=== PATIENT | female | born 1965 | race Caucasian/White ===

== ENCOUNTER 2020-11-02 17:14 | Emergency (ER) | payer BC, SELFPAY ==
--- NOTE | ~2020-11-02 | XR_ITS ---
EXAMINATION: XR ribs LT 2V w CXR 2V EXAM DATE: 11/02/2020 19:04 INDICATION: Initial encounter following injury, with pain of the left ribs. TECHNIQUE: Frontal projection of the upper left ribs, frontal projection of the lower left ribs, obli que projection of the left ribs, frontal and lateral chest x-ray(s) for interpretation. There is no prior study for comparison. FINDINGS: There are no displaced acute left rib fractures identified. There is no soft tissue abnor mality seen. The lungs are hyperinflated which can be seen with chronic obstructive pulmonary disease (a clinical diagnosis of functional impairment), but is not diagnostic of it. No confluent consolida tion, pneumothorax or pleural effusion suspected. Cardiomediastinal silhouette is normal. IMPRESSION: No displaced left rib fractures. Hyperinflation. Reviewed, dictated and finalized at location A.
[2020-11-02 18:23] VITALS: BP 139/72; PULSE 84; RESP 18; TEMP 36.7; O2SAT 98
--- NOTE | 2020-11-02 18:53 | ED.GENADULT ---
HPI - General Adult General Chief complaint: Unspecified Stated complaint: rib pain Time Seen by Provider: 11/02/20 18:53 History of Present Illness HPI narrative: Left chest wall pain for the past couple of hours. Started while pulling up floor boards from her deck. She felt a pop and has had pain ever since. Worse with deep breathing or coughing. no SOB. Related Data Allergies Allergy/AdvReac Type Severity Reaction Status Date / Time No Known Allergies Allergy Verified 11/02/20 19:14 Review of Systems Review of Systems: All systems reviewed & are unremarkable except as noted in HPI and below Constitutional: Constitutional: Denies fever(s) Cardiovascular: Cardiovascular: Denies dyspnea Respiratory: Respiratory: Denies cough Gastrointestinal: Gastrointestinal: Reports no additional gastrointestinal complaints PMFSH Social History Social History Smoking status: Current every day smoker Gender identity (if verbalized by the patient): Female Exam Const: General: cooperative, healthy appearing and uncomfortable Nutritional Appearance: well nourished Orientation/consciousness: patient oriented x3 HENMT: Head: normal to inspection Neck: Neck: normal visual inspection Chest: Chest palpation & inspection: normal inspection of the chest and tenderness rib (left lower, minimal) Resp: Effort & Inspection: normal respiratory effort Auscultation: clear to auscultation bilaterally Cardio: Rate: regular rate Rhythm: regular rhythm GI: Inspection: normal to inspection GI Palp: No Tenderness to palpation present (GI) Neuro: General: patient oriented x3, gait normal and no focal motor deficits Extrem: General: normal to inspection Course Vital Signs Vital signs: Vital Signs Temperature 36.7 C 11/02/20 18:23 Pulse Rate 84 11/02/20 18:23 Respiratory Rate 18 11/02/20 18:23 Blood Pressure 139/72 11/02/20 18:23 Pulse Oximetry 98 11/02/20 18:23 Temperature 36.7 C 11/02/20 18:23 Pulse Rate 87 11/02/20 19:13 Respiratory Rate 18 11/02/20 19:13 Blood Pressure 143/71 H 11/02/20 19:13 Pulse Oximetry 98 11/02/20 19:13 Medical Decision Making MDM Narrative Medical decision making narrative: x-ray negative for acute injury Differential Diagnosis Differential Diagnosis: rib fracture, strain, pneumothorax, other Medical Records Medical records reviewed: Yes I reviewed the external patient's medical records. Vital Signs Vital Signs: Vital Signs Temperature 36.7 C 11/02/20 18:23 Pulse Rate 84 11/02/20 18:23 Respiratory Rate 18 11/02/20 18:23 Blood Pressure 139/72 11/02/20 18:23 Pulse Oximetry 98 11/02/20 18:23 Temperature 36.7 C 11/02/20 18:23 Pulse Rate 87 11/02/20 19:13 Respiratory Rate 18 11/02/20 19:13 Blood Pressure 143/71 H 11/02/20 19:13 Pulse Oximetry 98 11/02/20 19:13 Imaging Data Radiologist's impression: ITS Impressions Ribs w/Chest X-Ray 11/02/20 19:06 IMPRESSION: No displaced left rib fractures. Hyperinflation. Discharge Plan Discharge Clinical Impression: Strain of chest wall Patient Disposition: Home, Self-Care Condition: Stable Instructions: Chest Wall Pain (ED) Prescriptions: New cyclobenzaprine 10 mg tablet 10 mg PO TID PRN (Reason: muscle spasm) Qty: 20 RF: 0 Follow-up/Referrals: Aashish Hutton MD [Primary Care Provider] -
[2020-11-02 19:13] VITALS: BP 143/71; PULSE 87; RESP 18; O2SAT 98
== END 2020-11-02 19:33 | disposition home or self-care (01) ==
PROVIDERS: Emergency Provider Emergency Medicine; PCP Family Medicine
DX: S29.011A Strain of muscle and tendon of front wall of thorax, initial encounter (principal); F17.200 Nicotine dependence, unspecified, uncomplicated; X50.9XXA Other and unspecified overexertion or strenuous movements or postures, initial encounter
CPT/HCPCS: 71046; 71100; 99283

== ENCOUNTER → 2021-03-01 16:51 | Outpatient (CLI) | payer BC, SELFPAY ==
--- NOTE | ~2021-03-01 | MM_ITS ---
EXAMINATION: MM screening christopher BI w leah HISTORY: Screening TECHNIQUE: Craniocaudal and mediolateral oblique 3-D tomosynthesis images were obtained and synthetic 2-D images were generated. CAD analysis was submitted and interpreted. COMPARISON: Comparison to multiple prior studies sequentially, with oldest reviewed study dated 04/23. BREAST PARENCHYMAL COMPOSITION: The breasts are extremely dense, which lowers the sensitivity of mamm ography. FINDINGS: There is no evidence of suspicious mass, calcification, or architectural distortion to sugg est malignancy in either breast. There has been no suspicious interval change. IMPRESSION: 1. No mammographic evidence of malignancy. 2. Recommend routine screening mammography in one year. BI-RADS Category 1: Negative Reviewed, dictated and finalized at location A.
== END ==
PROVIDERS: PCP Family Medicine; Visit Provider Physician Assistant
DX: Z12.31 Encounter for screening mammogram for malignant neoplasm of breast (principal)
CPT/HCPCS: 77063; 77067

== ENCOUNTER 2024-07-17 16:40 | Outpatient (CLI) | payer OTHER, SELFPAY ==
--- NOTE | ~2024-07-17 | CT_ITS ---
CT Scan of the Chest without Contrast: Clinical Indication: Lung cancer screening, nicotine dependence Technique: Contiguous sections were acquired throughout the chest without intravenous contrast. Dose reduction technique was used on this scan by utilizing automated exposure control and iterative recon struction technique. The dose-length product (DLP) was 69.96 mGy-cm. Findings: There is no evidence of any significant mediastinal, hilar or axillary lymphadenopathy. The mediastin al soft tissues appear normal. There is no evidence of pleural or pericardial effusion. There is moderate emphysema, mild right apical scarring. No definite pulmonary nodule evident. Images through the upper abdomen reveal no abnormalities. Impression: Lung RADS 1: Negative. 12 month follow-up screening CT advised. Reviewed, dictated and finalized at location . 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 12 month follow-up screening CT advised.
== END 2024-07-17 16:41 | disposition home or self-care (01) ==
LOC: ANHIMG 16:43
PROVIDERS: PCP Family Medicine; Visit Provider Family Medicine
DX: Z12.2 Encounter for screening for malignant neoplasm of respiratory organs (principal); Z87.891 Personal history of nicotine dependence
CPT/HCPCS: 71271

== ENCOUNTER 2025-06-20 17:47 | Emergency (ER) | payer BC, SELFPAY ==
--- NOTE | ~2025-06-20 | CT_ITS ---
EXAMINATION: CT chest abdomen pelvis w con DATE: 06/20/2025 22:37 INDICATION: Left chest pain. Injury. TECHNIQUE: Computed tomography (CT) of the chest, abdomen, and pelvis was performed with 100 mL Omnipaque 350 intravenous contrast. Automated exposure control and iterative reconstruction technique were employed. The dose-length product was 296.09 mGy-cm. COMPARISON: Chest CT 07/17/2024 FINDINGS: CHEST CT: There is moderate emphysema. There is mild atelectasis bilaterally. There is mild scarring at the lung apices. No pleural effusion. The heart size is normal. There are coronary artery calcifications. No pericardial effusion. There are fractures of right sixth-eighth ribs. There is mild thoracic spondylosis. ABDOMEN/PELVIS CT: The liver is normal. There are gallstones in the gallbladder, which is normal in size. The spleen, pancreas, and adrenal glands are normal. There are cysts in the kidneys measuring up to 3.9 cm on the right. There are no dilated loops of bowel. There is a moderate volume of stool in the colon. The appendix is not visualized. There are no pathologically enlarged lymph nodes. There is no free intraperitoneal fluid. There is severe lumbar spondylosis. IMPRESSION: 1. Acute fractures of right sixth-eighth ribs. 2. Moderate emphysema. Reviewed, dictated and finalized at location E. HOUSE ADMINISTRATOR
--- NOTE | ~2025-06-20 | XR_ITS ---
EXAMINATION: XR chest 1V portable 06/20/2025 21:57 INDICATION: Status post fall. Back pain. PROCEDURE: AP portable chest COMPARISON: 11/02/2020 FINDINGS: The lungs are clear. The cardiomediastinal silhouette is within normal limits. There are no pleural effusions. There is no pneumothorax suspected. The lungs are hyperinflated which is consistent with, but not diagnostic of chronic obstructive pulmonary disease. IMPRESSION: 1: NO ACUTE CARDIOPULMONARY DISEASE. Reviewed, dictated and finalized at location O. T OPERATIONS COORDINATOR
--- OUTSIDE RECORDS SUMMARY | 2025-06-20 17:49 | XMS_ITS | Clinical Summary ---
Author Organization [facility] Address [address] [place] [id number] Care Team Providers Care Associate Director Finance Name Role Phone Aashish Hutton MD Primary Care Provider [phone] Social History Tobacco Use Types Packs/Day Years Used Date Smoking Tobacco: Never Assessed Comments Unknown Sex and Gender Information Value Date Recorded Sex Assigned at Not on file Legal Sex Female 10:09 AM CDT Gender Identity Not on file Sexual Orientation Not on file Plan of Treatment Health Maintenance Due Date Last Done Comments Cervical Cancer Screening Pa p Smear (Age 30 to 64) Every 3 Years 1966 Colorectal Cancer Screening Colonoscopy (10 Years) 1966 Annual Physical 1969 Hepatitis C 1984 DTaP, Tdap and Td Vaccines ( 1 - Tdap) 1985 Hepatitis B Vaccines (1 of 3 - 19+ 3-dose series) 1985 Cervical Cancer Screening Pa p with HPV Testing (Age 30 to 64) Every 5 Years 1996 Cervical Cancer Screening wi th HPV 1996 Mammogram Screening 2006 Pneumococcal Vaccine: 50+ Years (1 of 1 - PCV) 2016 Zoster Vaccines (1 of 2) 2016 COVID-19 Vaccine (2024-2 6 season) 2025 10/29/2020, 10/10/2020 Influenza Adult (#1) 2025 Hepatitis A Vaccines Aged Out No long er eligible based on patient's age to complete this topic Meningococcal B Vaccine Aged Out No l onger eligible based on patient's age to complete this topic Meningococcal Vaccine Aged Out No chelsea larry eligible based on patient's age to complete this topic RSV Immunizations Under 20 Months Aged Out No longer eligible b ased on patient's age to complete this topic Insurance [facility] Care Teams Associate Director Finance Relationship Specialty Start Date End Date Aashish Hutton MD [address] [place] [id number] PCP - General FAMILY PRACTICE 11/04/20
[2025-06-20 17:50] VITALS: BP 148/66; PULSE 82; RESP 16; TEMP 36.5; O2SAT 100
[2025-06-20] MEDS: HYDROmorphone HCL INJ (*CRX) 1 MG/ML SYR 0.5 MG IV PUSH (21:56)
[2025-06-20] MEDS: diazePAM INJ (*CRX) 10 MG/2 ML SYRINGE 5 MG IM (21:56)
[2025-06-20 22:11] VITALS: PULSE 81; RESP 18; O2SAT 97
[2025-06-20 22:16] LABS: Hematocrit 35.6 % (37.0-47.0); Hemoglobin 11.9 g/dL (12.0-15.0); Immature Granulocyte Percent A 0.5 % (0-0.5); Lymphocytes Absolute Auto 2.99 K/mm3 (0.9-3.2); Mean Corpuscular HGB Conc 33.4 g/dl (32-36); Mean Corpuscular Hemoglobin 32.8 pg (26-34); Mean Corpuscular Volume 98.1 fl (80-100); Nucleated Red Blood Cells Absolute Auto 0.000 K/mm3 (0.0-0.012); Nucleated Red Blood Cells Perc 0.0 % (0.0-0.2); Platelet Count Result 253 k/mm3 (150-375); Red Blood Count 3.63 M/mm3 (4.2-5.4); White Blood Count 10.9 K/mm3 (4.5-10.0)
[2025-06-20 22:25] LABS: Alanine Aminotransferase 25 U/L (6-35); Albumin Level 4.6 g/dL (3.5-5.1); Alkaline Phosphatase 81 U/L (38-126); Anion Gap 6 mmol/L (4-12); Aspartate Amino Transferase 42 U/L (14-36); Bilirubin,Total 0.4 mg/dL (0.2-1.3); Blood Urea Nitrogen 17 mg/dL (7-17); Calcium 9.4 mg/dL (8.4-10.2); Carbon Dioxide 28 mmol/L (22-30); Chloride 100 mmol/L (98-107); Estimated CRCL calculation 51 ml/min; Estimated Glomerular Filt Rate > 60; Glucose 97 mg/dL (65-110); Potassium 4.1 mmol/L (3.4-5.0); Sodium 134 mmol/L (137-145); Total Protein 7.8 g/dL (6.3-8.2)
[2025-06-20 22:52] VITALS: PULSE 79; RESP 18; O2SAT 97
[2025-06-20] MEDS: LIDOCAINE 5% PATCH 1 PATCH TRANSDERM (23:22)
[2025-06-20] MEDS: ACETAMINOPHEN 500 MG TABLET 1000 MG PO (23:22)
[2025-06-20] MEDS: KETOROLAC 15 MG/ML VIAL (*BKC) IV PUSH (23:22)
--- NOTE | 2025-06-21 00:01 | PC.NURSE ---
Patient ambulated to bathroom without any assistance. Pt states she still has pain but it is manageable. She states she would rather go home as long as she has medications to help with pain and muscle spasms at home. RN called RT for Incentive spirometer for patient.
--- NOTE | 2025-06-21 00:21 | ED_ITS ---
HPI - General Adult General Chief complaint: Back Pain/Injury Stated complaint: R RIB PAIN S/P FALL Time Seen by Provider: 06/20/25 21:20 History of Present Illness HPI narrative: This is a 59-year-old female presenting for right-sided rib pain. Patient was cleaned up ER when she fell backwards onto a tree stump. For she did not have any significant pain but several hours later she developed severe spasms of her back that her debilitating. She does not have any chest pain or difficulty breathing. No other injuries. Related Data Home Medications ?Medication ?Instructions ?Recorded ?Confirmed ?Last Taken ?Type albuterol sulfate 90 mcg/actuation 1 puff inhalation Q 4H PRN 11/14/22 01/10/25 Unknown History aerosol inhaler aspirin 81 mg tablet,delayed 81 mg PO DAILY 11/14/22 0 01/10/25 Unknown History release (Adult Aspirin Regimen) calcium carbonate (Calcium 600) 600 mg PO DAILY 01/10/25 Unknown History vitamin B complex (B 1 tablet PO DAILY 11/14/22 0 01/10/25 Unknown History Complex-Vitamin B12 tablet) Allergies Allergy/AdvReac Type Severity Reaction Status Date / Time No Known Allergies Allergy Verified 06/20/25 17:48 [facility] Past Medical History Medical History Urge incontinence Hypercholesteremia Recurrent herpes labialis Primary osteoarthritis, unspecified hand Generalized anxiety disorder Major depressive disorder, recurrent episode, in partial remission Nonulcer dyspepsia COPD (chronic obstructive pulmonary disease) NSAID long-term use Essential (primary) hypertension Insomnia, unspecified Social History Social History Smoking packs per day: 1 Smoking cigarettes per day: 20.0 Tobacco type: cigarettes Second hand tobacco smoke exposure: No Alcohol intake: never Substance use: never Substance use type: does not use Lack of Transportation: No Lack of Food: Never True Current Housing: I Have Housing Concerned About Future Housing: No Difficulty Paying Gas/Electric Bills: No Difficulty Paying for Meds: No Currently Unemployed: No Difficulty w/ Childcare or Family Care: No Living arrangements: with family Occupation/Education: occupation Gender identity (if verbalized by the patient): Female Sexual Orientation (if Verbalized by the Patient): Straight or Heterosexual Spiritual care concerns: No Exam 2 Narrative: APPEARANCE: Patient is curled up in the position on the floor she is moaning in pain Head: atraumatic. EYES: EOMI, NOSE: Atraumatic NECK: Trachea midline RESPIRATORY: No increased rate of breathing clear to auscultation CARDIOVASCULAR: RRR, no peripheral edema ABDOMINAL: Non-distended MUSCULOSKELETAl: tenderness over the posterior right thorax without bruising or crepitus NEURO: Alert. Moving 4/4 extremities SKIN:: Warm, dry. Normal color PSYCHIATRIC: Normal affect Course Vital Signs Vital signs: Vital Signs Temperature 97.7 F 06/20/25 17:50 Pulse Rate 82 06/20/25 17:50 Respiratory Rate 16 06/20/25 17:50 Blood Pressure 148/66 H 06/20/25 17:50 Pulse Oximetry 100 06/20/25 17:50 Oxygen Delivery Room Air 06/20/25 17:50 Temperature 97.7 F 06/20/25 17:50 Pulse Rate 79 06/20/25 22:52 Respiratory Rate 18 06/20/25 22:52 Blood Pressure 148/66 H 06/20/25 17:50 Pulse Oximetry 97 06/20/25 22:52 Oxygen Delivery Room Air 06/20/25 17:50 Medical Decision Making MDM Narrative Medical decision making narrative: -Course: 51-year-old female presenting with back pain after falling onto his stump. On initial exam she is in significant pain with spasms of her back. She is treated with Dilaudid and Valium for muscle spasms. CT chest and pelvis showed fractured ribs 6 through 8 on the right without hemo or pneumothorax. She was then treated with Toradol Tylenol and lidocaine patches. Pain is now controlled. She is able to ambulate the ED. She has been given incentive spirometer and will be discharged with pain medications and return precautions for pneumonia. Patient agreeable to plan. -DDX includes but is not limited to: Rib fracture, hemothorax, pneumothorax, muscle spasm Vital Signs Vital Signs: Vital Signs Temperature 97.7 F 06/20/25 17:50 Pulse Rate 82 06/20/25 17:50 Respiratory Rate 16 06/20/25 17:50 Blood Pressure 148/66 H 06/20/25 17:50 Pulse Oximetry 100 06/20/25 17:50 Oxygen Delivery Room Air 06/20/25 17:50 Temperature 97.7 F 06/20/25 17:50 Pulse Rate 79 06/20/25 22:52 Respiratory Rate 18 06/20/25 22:52 Blood Pressure 148/66 H 06/20/25 17:50 Pulse Oximetry 97 06/20/25 22:52 Oxygen Delivery Room Air 06/20/25 17:50 Lab Data 06/20/25 22:06 06/20/25 22:06 Labs: Lab Results 06/20/25 Range/Units 22:06 WBC 10.9 H (4.5-10.0) K/mm3 RBC 3.63 L (4.2-5.4) M/mm3 Hgb 11.9 L (12.0-15.0) g/dL Hct 35.6 L (37.0-47.0) % MCV 98.1 (80-100) fl MCH 32.8 (26-34) pg MCHC 33.4 (32-36) g/dl RDW 13.2 (11.5-14.5) % Plt Count 253 (150-375) k/mm3 MPV 9.3 (7.4-10.4) fl Immature Gran % (Auto) 0.5 (0-0.5) % Neut % (Auto) 57.7 (45.5-73.1) % Lymph % (Auto) 27.4 (18.3-44.2) % [place] % (Auto) 11.0 H (2.6-8.5) % Eos % (Auto) 2.7 (0-4.4) % Baso % (Auto) 0.7 (0.2-1.2) % Lymph # (Auto) 2.99 (0.9-3.2) K/mm3 [place] # (Auto) 1.2 H (0.1-0.6) K/mm3 Eos # (Auto) 0.3 (0-0.3) K/mm3 Baso # (Auto) 0.1 (0.0-0.1) K/mm3 Abs Immat Gran (auto) 0.05 H (0.00-0.031) K/mm3 Absolute Neuts (auto) 6.3 (1.3-6.7) K/mm3 Absolute Nucleated RBC 0.000 (0.0-0.012) K/mm3 Nucleated RBC % 0.0 (0.0-0.2) % Sodium 134 L (137-145) mmol/L Potassium 4.1 (3.4-5.0) mmol/L Chloride 100 (98-107) mmol/L Carbon Dioxide 28 (22-30) mmol/L Anion Gap 6 (4-12) mmol/L BUN 17 (7-17) mg/dL Creatinine 0.90 (0.7-1.0) mg/dL Estim Creat Clear Calc 51 ml/min Estimated GFR > 60 (59 - ) Glucose 97 (65-110) mg/dL Calcium 9.4 (8.4-10.2) mg/dL Total Bilirubin 0.4 (0.2-1.3) mg/dL AST 42 H (14-36) U/L ALT 25 (6-35) U/L Alkaline Phosphatase 81 (38-126) U/L Total Protein 7.8 (6.3-8.2) g/dL Albumin 4.6 (3.5-5.1) g/dL Discharge Plan Discharge Clinical Impression: Fracture, ribs Patient Disposition: Home Condition: Stable Instructions: Antibiotic Form, Rib Fracture (ED) Additional Instructions: You were seen in the emergency department for rib fractures. Please use the pain medication prescribed as directed for pain. Use your incentive spirometer 10 times an hour while awake. If you develop fevers, difficulty breathing or uncontrolled pain please return to emergency department immediately. Patient Language: Burmese Prescriptions: New acetaminophen 500 mg tablet 1,000 mg PO TID PRN (Reason: myrtle) 7 Days Qty: 42 0RF ibuprofen 800 mg tablet 800 mg PO TID PRN (Reason: pain) 7 Days Qty: 21 0RF methocarbamol 750 mg tablet 1,500 mg PO TID Qty: 45 0RF lidocaine 5 % adhesive patch,medicated 1 patch topical DAILY Qty: 15 0RF Rx Instructions: leave on most painful area for up to 12 hrs oxycodone 5 mg tablet 5 mg PO Q4H PRN (Reason: pain) Qty: 20 0RF No Action albuterol sulfate 90 mcg/actuation HFA aerosol inhaler 1 puff inhalation Q4H PRN aspirin [Adult Aspirin Regimen] 81 mg tablet,delayed release (DR/EC) 81 mg PO DAILY calcium carbonate [Calcium 600] 600 mg calcium (1,500 mg) tablet 600 mg PO DAILY vitamin B complex [B Complex-Vitamin B12] Tablet 1 tablet PO DAILY solifenacin 5 mg tablet 5 mg PO DAILY Qty: 90 1RF meloxicam 15 mg tablet 15 mg PO DAILY Qty: 90 1RF lisinopril-hydrochlorothiazide 20-12.5 mg tablet 1 tablet PO DAILY Qty: 90 1RF omeprazole 40 mg capsule,delayed release(DR/EC) See Rx Instructions .ROUTE .COMPLEX Qty: 90 1RF Dose Instruction: TAKE 1 CAPSULE BY MOUTH EVERY DAY Rx Instructions: TAKE 1 CAPSULE BY MOUTH EVERY DAY atorvastatin 20 mg tablet See Rx Instructions .ROUTE .COMPLEX Qty: 90 1RF Dose Instruction: TAKE 1 TABLET BY MOUTH EVERY DAY Rx Instructions: TAKE 1 TABLET BY MOUTH EVERY DAY venlafaxine 150 mg capsule,extended release 24hr See Rx Instructions .ROUTE .COMPLEX Qty: 90 0RF Dose Instruction: TAKE 1 CAPSULE BY MOUTH EVERY DAY Rx Instructions: TAKE 1 CAPSULE BY MOUTH EVERY DAY lorazepam 2 mg tablet 2 mg PO QHS PRN (Reason: sleep) Qty: 30 0RF valacyclovir 500 mg tablet 500 mg PO DAILY Qty: 90 1RF Follow-up/Referrals: Aashish Hutton MD [Primary Care Provider, Family Practice]
[2025-06-21 01:00] VITALS: BP 145/69; PULSE 76; RESP 19; O2SAT 99
[2025-06-21 01:05] VITALS: BP 145/69; PULSE 76; RESP 19; O2SAT 99
== END 2025-06-21 01:08 | disposition home or self-care (01) ==
PROVIDERS: Emergency Provider Emergency Medicine; PCP Family Medicine
DX: S22.41XA Multiple fractures of ribs, right side, initial encounter for closed fracture (principal); I10 Essential (primary) hypertension; J44.9 Chronic obstructive pulmonary disease, unspecified; E78.00 Pure hypercholesterolemia, unspecified; M19.049 Primary osteoarthritis, unspecified hand; F33.41 Major depressive disorder, recurrent, in partial remission; F41.1 Generalized anxiety disorder; F17.210 Nicotine dependence, cigarettes, uncomplicated; Z79.82 Long term (current) use of aspirin; Z79.899 Other long term (current) drug therapy; W01.198A Fall on same level from slipping, tripping and stumbling with subsequent striking against other object, initial encounter
CPT/HCPCS: 36415; 71045; 71260; 74177; 80053; 85025; 96372; 96374; 96375; 99284; A9270; J1171; J1885; J3360; Q9967